=== PATIENT | female | born 1985 | race African-American/Black ===

== ENCOUNTER 2016-12-04 19:20 | Emergency (ER) | payer BC ==
[~2016-12-04] VITALS: Ht 167.6 cm; Wt 102.1 kg
[2016-12-04 19:20] VITALS: BP 121/59
[~2016-12-04 19:20] MED LIST: AMOXICILLIN 50500 MG PO; APAP500; CLARITIN10 MG PO; DERMOPLAST SPRA56 ML; HYDROCORTISONE30 G9; IBUPROFEN 600600 M1; IBUPROFEN 600600 M1 PO; LANOLIN56 GM; MACROBID 100 M100 M1 PO; NOHOMEMEDICATIONS; TRAMADOL 50 MG50 MG PO; TRINATE TABLET1 TAB PO; TUCKS1 EAC1; TUMS; ZOFRAN ODT4 MG PO
[2016-12-04] MEDS ORDERED: DEXACIDIN EYE DR5 ML OPHTHALMIC (19:29)
== END 2016-12-04 19:50 | disposition home or self-care (01) ==
LOC: ER 19:20
DX: H10.9 Unspecified conjunctivitis (principal)

== ENCOUNTER 2020-05-05 10:06 | Emergency (ER) | payer BC ==
[~2020-05-05] VITALS: Ht 167.6 cm; Wt 98.0 kg
[~2020-05-05 10:06] MED LIST changes: +CLARITIN-D 121 EAC1 PO; +DEXACIDIN EYE DR5 ML OPHTHALMIC; +REDNESS RELIEF15 M2 OPHTHALMIC; +ZYRTEC10 M5 PO
[2020-05-05] MEDS ORDERED: FLEXERIL PO (10:26)
[2020-05-05] MEDS ORDERED: IBU600 MG PO (10:26)
[2020-05-05 10:32] VITALS: BP 119/70
== END 2020-05-05 10:37 | disposition home or self-care (01) ==
LOC: ER 10:06
DX: S16.1XXA Strain of muscle, fascia and tendon at neck level, initial encounter (principal); S39.012A Strain of muscle, fascia and tendon of lower back, initial encounter; V49.9XXA Car occupant (driver) (passenger) injured in unspecified traffic accident, initial encounter; Y93.89 Activity, other specified; Y92.89 Other specified places as the place of occurrence of the external cause; Y99.8 Other external cause status